=== PATIENT | male | born 1995 | race Two or more races ===

== ENCOUNTER 2019-05-31 08:40 | Emergency (ER) | payer OTHER ==
[~2019-05-31] VITALS: Ht 175.3 cm; Wt 108.9 kg
--- NOTE | 2019-05-31 08:45 | NUR ---
CAME IN FOR PALPITATIONS. "I DON'T FEEL GOOD, I FEEL LIKE MY HEART IS PUMPING FAST, I SMOKED WEED THIS MORNING", DENIES CHEST PAIN, ALSO C/O BUE AND BLE NUMBNESS. -N/V/D. TO ER BED 10, HOOKED TO [facility], PATIENT AOx4, BREATHING EVEN AND UNLABORED, CHANGED TO HOSP GOWPritesh, PLATING DEPARTMENT HELPER AT BEDSIDE, DR DONAHUE AT BEDSIDE.
[2019-05-31] MEDS ORDERED: LORAZEPAM INJ 2 MG/ML VIAL ONE (08:58)
[2019-05-31] MEDS: LORAZEPAM INJ 2 MG/ML VIAL IV ONE (09:03)
[2019-05-31] MEDS: IV NS 0.9% 1,000 ML BAG IV ONE (09:03)
--- NOTE | 2019-05-31 09:03 | NUR ---
TELEPHONE PLANT POWER OPERATOR AT BEDSIDE
[2019-05-31 09:16] LABS: ALANINE AMINOTRANSFERASE 142 U/L (12-78); ALBUMIN 4.5 g/dL (3.4-5.0); ALKALINE PHOSPHATASE 111 U/L (46-116); ASPARTATE AMINOTRANSFERASE 53 U/L (15-37); BILIRUBIN,DIRECT 0.1 mg/dL (0.0-0.2); BILIRUBIN,TOTAL 0.6 mg/dL (0.2-1.0); CALCIUM, SERUM 9.3 mg/dL (8.5-10.1); CARBON DIOXIDE 22 mmol/L (21-32); CHLORIDE 93 mmol/L (98-107); CREATININE 0.9 mg/dL (0.6-1.3); POTASSIUM 3.2 mmol/L (3.5-5.1); SODIUM SERUM 130 mmol/L (136-145); UREA NITROGEN, BLOOD 7 mg/dL (7-18)
[2019-05-31 09:19] LABS: BASOPHILS % (AUTO) 0.7 % (0.0-2.0); EOSINOPHILS % (AUTO) 2.1 % (0.0-6.0); GLUCOSE 400 mg/dL (74-106); HEMATOCRIT 45 % (39-51); LYMPHOCYTES # (AUTO) 2.4 /CMM (0.8-4.8); LYMPHOCYTES % (AUTO) 40.8 % (20.0-44.0); MEAN CORPUSCULAR HGB CONC 34 g/dl (31.0-36.0); MEAN CORPUSCULAR VOLUME 88 fL (80-96); MONOCYTES # (AUTO) 0.4 /CMM (0.1-1.30); MONOCYTES % (AUTO) 6.3 % (2.0-12.0); NEUTROPHILS % (AUTO) 50.1 % (43.0-81.0); PLATELET COUNT (AUTO) 283 /CMM (150-450); RED BLOOD CELL COUNT(AUTO) 5.07 MIL/uL (4.5-6.0); WHITE BLOOD COUNT (AUTO) 5.9 K/uL (4.3-11.0)
[2019-05-31] MEDS: IV NS 0.9% 1,000 ML IV ONE (09:58)
--- NOTE | 2019-05-31 11:41 | NUR ---
IV removed. Catheter intact and site benign. Pressure and 4x4 applied to site. No bleeding noted.Patient discharged to home in stable condition. Written and verbal after care instructions given. Patient verbalizes understanding of instruction.
[2019-05-31 11:43] VITALS: BP 152/69
== END 2019-05-31 11:44 | disposition home or self-care (01) ==
LOC: ER 08:48
DX: E11.9 Type 2 diabetes mellitus without complications (principal); E86.0 Dehydration; R00.2 Palpitations; F12.10 Cannabis abuse, uncomplicated; R00.0 Tachycardia, unspecified
CPT/HCPCS: 36415; 71045; 80048; 80076; 82010; 82962; 84484; 85025; 93005; 96361; 96374; 99284; J2060; J7030 ×2